=== PATIENT | female | born 1985 | race American Indian/Alaskan Native ===

== ENCOUNTER 2019-10-12 12:30 | Emergency (ER) | payer SELFPAY ==
[2019-10-12 13:01] VITALS: BP 143/85
--- NOTE | 2019-10-12 13:02 | Event Note ---
ED Screening Note ED Screening Note: The patient was seen in triage for18 weeks feeling pelvic cramps and pain without care_ Labs/imaging ordered to evaluate for a cause of this complaint. Vital signs reviewed, patient awake and alert in NAD. Plan ED evaluation. This initial assessment/diagnostic orders/clinical plan/treatment(s) is/are subject to change based on patients health status, clinical progression and re- assessment by fellow clinical providers in the ED. Further treatment and workup at subsequent clinical providers discretion. Patient/guardian urged not to elope from the ED as their condition may be serious if not clinically assessed and managed. Initial orders include:
[2019-10-12 13:24] LABS: Bacteria,Urine 1+ /HPF (Negative); Bilirubin,Urine NEG (Negative); Blood,Urine NEG (Negative); Color,Urine Yellow (Yellow); Mucus,Urine 3+ /HPF; Protein,Urine <15 mg/dL mg/dL (Negative); Urobilinogen,Urine < 2.0 mg/dL (<2.0)
--- NOTE | 2019-10-12 14:24 | Ultrasound Report ---
LIMITED OBSTETRIC ULTRASOUND HISTORY: 18 weeks and vaginal bleeding. COMPARISON: None. TECHNIQUE: Limited transabdominal and transvaginal OB ultrasound performed. FINDINGS: Cervix: 3.1 cm in length and closed. Ovaries And Uterus: No significant abnormality. Gestation: Emerson Monochorionic monoamniotic intrauterine fetus. Placenta: Anterior location and free of the internal cervical os. No placental or subchorionic hemato ma. Presentation: Variable. Amniotic Fluid: Within normal limits. ANATOMY: Detailed anatomic survey was not requested. Somatic activity is subjectively within normal limits. C ardiac activity is regular rate at152 beats per minute. BIOMETRY: Biparietal diameter: 2.6 cm corresponding to14 weeks 3 days Head circumference: 9.6 cmcorresponding to14 weeks 3 days Abdominal circumference: 8.3 cmcorresponding to14 weeks 4 days Femur length: 1.5 cmcorresponding to14 weeks 3 days Estimated gestational age based on today's measurements: 14 weeks 3 days. IMPRESSION: Single living intrauterine at approximately 14 weeks 3 days with no significant abnormality . EDC: 04/08/2020 Signer Name: Aquilino Webb MD Signed: 10/12/2019 2:19 PM Workstation Name: [id number]
--- NOTE | 2019-10-12 15:00 | Emergency Department Report ---
HPI - General Chief Complaint: Abdominal Pain Time Seen by Provider: 10/12/19 12:58 - HPI HPI: 34-year-old -[place] female presents to the emergency department with complaint of some pelvic cramping while . She believes herself to be about 18 weeks . She denies any vaginal bleeding, discharge, fever. There is some nausea without vomiting. With this she is with one previous miscarriage. She currently lives in [place]. She does not have any [employer] as of yet. She is taking vitamins. ED Past Medical Hx - Past Medical History Previous Medical History?: No - Surgical History Past Surgical History?: No - Social History Smoking Status: Current Some Day Smoker Substance Use Type: None ED Review of Systems ROS: Stated complaint: 18 WKS /ABD PAIN Other details as noted in HPI Comment: All other systems reviewed and negative Constitutional: denies: chills, fever Gastrointestinal: abdominal pain, nausea. denies: vomiting Genitourinary: denies: dysuria, discharge Musculoskeletal: denies: back pain Physical Exam - Physical Exam Vital Signs: Vital Signs 10/12/19 12:59 Temperature 98.1 F Pulse Rate 73 Respiratory 16 Rate Blood Pressure 143/85 O2 Sat by Pulse 100 Oximetry Physical Exam: GENERAL: The patient is well-developed well-nourished. HEENT: Normocephalic. Atraumatic. Patient has moist mucous membranes. EYES: Extraocular motions are intact. NECK: Supple. Trachea is midline. CHEST/LUNGS: Clear to auscultation. There is no respiratory distress noted. HEART/CARDIOVASCULAR: Regular. There is no tachycardia. There is no murmur. ABDOMEN: Abdomen is soft, nontender. Patient has normal bowel sounds. There is no abdominal distention. SKIN:Skin is warm and dry. . NEURO: The patient is awake, alert, and oriented. The patient is cooperative. Normal speech. MUSCULOSKELETAL: There is no tenderness or deformity. There is no evidence of acute injury. ED Course Vital Signs 10/12/19 12:59 Temperature 98.1 F Pulse Rate 73 Respiratory 16 Rate Blood Pressure 143/85 O2 Sat by Pulse 100 Oximetry ED Medical Decision Making - Radiology Data Radiology results: report reviewed LIMITED OBSTETRIC ULTRASOUND HISTORY: 18 weeks and vaginal bleeding. COMPARISON: None. TECHNIQUE: Limited transabdominal and transvaginal OB ultrasound performed. FINDINGS: Cervix: 3.1 cm in length and closed. Ovaries And Uterus: No significant abnormality. Gestation: Emerson Monochorionic monoamniotic intrauterine fetus. Placenta: Anterior location and free of the internal cervical os. No placental or subchorionic hematoma. Presentation: Variable. Amniotic Fluid: Within normal limits. ANATOMY: Detailed anatomic survey was not requested. Somatic activity is subjectively within normal limits. Cardiac activity is regular rate at152 beats per minute. BIOMETRY: Biparietal diameter: 2.6 cm corresponding to14 weeks 3 days Head circumference: 9.6 cmcorresponding to14 weeks 3 days Abdominal circumference: 8.3 cmcorresponding to14 weeks 4 days Femur length: 1.5 cmcorresponding to14 weeks 3 days Estimated gestational age based on today's measurements: 14 weeks 3 days. IMPRESSION: Single living intrauterine at approximately 14 weeks 3 days with no significant abnormality. - Medical Decision Making This patient presents with some pelvic cramping while . No vaginal bleeding, dysuria, vaginal discharge. Ultrasound shows a live intrauterine at approximately 14 weeks and 3 days. The patient is hard on vitamins. The cramping has spontaneously improved. The patient lives in [place] and will be returning there soon and has been instructed to follow-up with an [employer]. Otherwise she will return to the closest emergency Department with any worsening of her symptoms, development of vaginal bleeding, or with any acute distress. Critical Care Time: No Critical care attestation.: If time is entered above; I have spent that time in minutes in the direct care of this critically ill patient, excluding procedure time. ED Disposition Clinical Impression: Pelvic cramping in antepartum period Qualifiers: Weeks of gestation: 14 weeks Qualified Code(s): Z3A.14 - 14 weeks gestation of Disposition: DC-01 TO HOME OR SELFCARE Is pt being admited?: No Condition: Stable Instructions: (ED) Additional Instructions: Please follow up with a [employer] when you return to [place]. Continue with your vitamins. Go to the closest emergency Department with any development of vaginal bleeding, any worsening of your pelvic cramping or pains, or with any acute distress. Referrals: OBGYN, Your [Other] - 3-5 Days Time of Disposition: 15:00
== END 2019-10-12 15:11 | disposition home or self-care (01) ==
LOC: ED 12:30
DX: O26.892 Other specified pregnancy related conditions, second trimester (principal); R10.2 Pelvic and perineal pain; O99.332 Smoking (tobacco) complicating pregnancy, second trimester; F17.200 Nicotine dependence, unspecified, uncomplicated; Z3A.18 18 weeks gestation of pregnancy
CPT/HCPCS: 36415; 76805; 81001; 84702; 86900; 86901; 87076; 87086; 87186